=== PATIENT | female | born 1975 | race Caucasian/White ===

== ENCOUNTER 2019-03-16 21:43 | Inpatient (IN) | payer MEDICAID, OTHER ==
[~2019-03-16] VITALS: Ht 167.6 cm; Wt 59.1 kg
[2019-03-17] MEDS ORDERED: HALOPERIDOL LACTATE 5 MG/ML VIAL IM ONE
[2019-03-17] MEDS ORDERED: LORazepam 2 MG/ML VIAL IM ONE
[2019-03-17] MEDS ORDERED: DiphenhydrAMINE HCL 50 MG/ML VIAL IM ONE
[2019-03-17] MEDS ORDERED: ZOLPIDEM TARTRATE 10 MG TABLET PO PRN (00:15)
[2019-03-17 01:52] LABS: BASOPHILS % (AUTO) 0.7 % (0.0-2.0); HEMATOCRIT 33.6 % (36-46); HEMOGLOBIN 11.4 g/dL (12.0-16.0); LYMPHOCYTES # (AUTO) 2.5 K/uL (1.0-4.8); LYMPHOCYTES % (AUTO) 29.7 % (22.0-44.0); MEAN CORPUSCULAR HEMOGLOBIN 31.8 pg (26.0-34.0); MEAN CORPUSCULAR VOLUME 93 fL (80-100); MONOCYTES # (AUTO) 0.6 K/uL (0.1-1.0); MONOCYTES % (AUTO) 7.4 % (2.0-9.0); NEUTROPHILS % (AUTO) 60.2 % (40.0-70.0); PLATELET COUNT (AUTO) 177 K/uL (150-450); RED CELL DISTRIBUTION WIDTH 13.6 % (11.5-14.5)
[2019-03-17 02:14] LABS: ALANINE AMINOTRANSFERASE 19 U/L (12-78); ALKALINE PHOSPHATASE 48 U/L (46-116); ANION GAP 3 mmol/L (8-16); ASPARTATE AMINOTRANSFERASE 17 U/L (15-37); BILIRUBIN,TOTAL 0.3 mg/dL (0.1-1.0); CALCIUM, TOTAL 7.9 mg/dL (8.8-10.5); CARBON DIOXIDE 30 mmol/L (22-29); CHLORIDE 105 mmol/L (98-107); CREATININE 0.83 mg/dL (0.60-1.30); GLOMERULAR FILTR. RATE CALC > 60 mL/min (>60); GLUCOSE,RANDOM 87 mg/dL (70-110); HCG,QUANTITATIVE < 1 mIU/mL (0-6); POTASSIUM 3.3 mmol/L (3.5-5.1); SODIUM SERUM 138 mmol/L (136-145); TOTAL PROTEIN, SERUM 5.4 g/dL (6.4-8.2)
[2019-03-17 02:20] LABS: UREA NITROGEN, BLOOD 22 mg/dL (7-18)
[2019-03-17] MEDS ORDERED: POTASSIUM CHLORIDE 20 MEQ ER TABLET PO ONE (04:00)
[2019-03-17] MEDS ORDERED: INFLUENZA VIRUS VACCINE QVS 2019-20 (3YR+)/PF 60 MCG/0.5 ML SYRINGE IM ONE (04:45)
[2019-03-17] MEDS ORDERED: CloNIDine HCL 0.1 MG TABLET PO PRN (13:15)
[2019-03-17] MEDS ORDERED: ACETAMINOPHEN 325 MG TABLET PO PRN (13:15)
[2019-03-17] MEDS ORDERED: GuaiFENesin/D-METHORPHAN [SUGAR-FREE] 200-20MG/10 ML SYRUP UDCUP PO PRN (13:15)
[2019-03-17] MEDS ORDERED: DOCUSATE SODIUM 100 MG CAPSULE PO PRN (13:15)
[2019-03-17] MEDS ORDERED: PETROLATUM,WHITE 28 GM JELLY TP PRN (13:15)
[2019-03-17] MEDS ORDERED: ALBUTEROL SULFATE HFA 90 MCG/PUFF 8 GM INHALER IH PRN (13:15)
[2019-03-17] MEDS ORDERED: MAG HYDROX/AL HYDROX/SIMETH ES 30 ML SUSPENSION UDCUP PO PRN (13:15)
[2019-03-17] MEDS ORDERED: MAGNESIUM HYDROXIDE SUSPENSION 30 ML UDCUP PO PRN (13:15)
[2019-03-17] MEDS ORDERED: LOPERAMIDE HCL 2 MG CAPSULE PO PRN (13:15)
[2019-03-17] MEDS ORDERED: ONDANSETRON HCL 4 MG TABLET PO PRN (13:15)
[2019-03-17 16:00] VITALS: BP 99/71
[2019-03-17] MEDS: OLANZapine 10 MG RAPDIS TABLET PO SCH (17:00)
[2019-03-18] MEDS: LORazepam 2 MG TABLET PO PRN ×2 (04:29→17:33)
[2019-03-18] MEDS: OLANZapine 5 MG RAPDIS TABLET PO PRN (04:30)
[2019-03-18] MEDS: OLANZapine 10 MG RAPDIS TABLET PO SCH ×2 (09:00→16:29)
[2019-03-18 16:00] VITALS: BP 121/93
[2019-03-18] MEDS: NICOTINE 14 MG/24 HOUR PATCH TD PRN (18:06)
[2019-03-18] MEDS ORDERED: HALOPERIDOL LACTATE 5 MG/ML VIAL ONE (20:56)
[2019-03-18] MEDS ORDERED: LORazepam 2 MG/ML VIAL ONE (20:56)
[2019-03-18] MEDS ORDERED: DiphenhydrAMINE HCL 50 MG/ML VIAL ONE (20:56)
[2019-03-18] MEDS ORDERED: HALOPERIDOL LACTATE 5 MG/ML VIAL IM ONE (21:00)
[2019-03-18] MEDS ORDERED: LORazepam 2 MG/ML VIAL IM ONE (21:00)
[2019-03-18] MEDS ORDERED: DiphenhydrAMINE HCL 50 MG/ML VIAL IM ONE (21:00)
[2019-03-18 22:27] VITALS: BP 92/61
[2019-03-19] MEDS: LORazepam 2 MG TABLET PO PRN ×2 (07:08→12:16)
[2019-03-19] MEDS: NICOTINE 14 MG/24 HOUR PATCH TD PRN (08:03)
[2019-03-19] MEDS: OLANZapine 10 MG RAPDIS TABLET PO SCH ×2 (08:07→17:00)
[2019-03-19 08:57] LABS: CHOL/HDL RATIO 2.1 (3.9-5.7)
[2019-03-19] MEDS ORDERED: LORazepam 2 MG/ML VIAL IM ONE (09:00)
[2019-03-19] MEDS ORDERED: DiphenhydrAMINE HCL 50 MG/ML VIAL IM ONE (09:00)
[2019-03-19] MEDS ORDERED: HALOPERIDOL LACTATE 5 MG/ML VIAL IM ONE (09:00)
[2019-03-19 09:25] VITALS: BP 110/73
[2019-03-19 16:06] VITALS: BP 107/77
[2019-03-20] MEDS: LORazepam 2 MG TABLET PO PRN ×2 (04:16→16:27)
[2019-03-20] MEDS ORDERED: LORazepam 2 MG/ML VIAL IM ONE (05:00)
[2019-03-20] MEDS ORDERED: DiphenhydrAMINE HCL 50 MG/ML VIAL IM ONE (05:00)
[2019-03-20] MEDS: OLANZapine 10 MG RAPDIS TABLET PO SCH ×2 (11:02→16:05)
[2019-03-20] MEDS: NICOTINE 14 MG/24 HOUR PATCH TD PRN (11:05)
[2019-03-20] MEDS: IBUPROFEN 400 MG TABLET PO PRN (11:07)
[2019-03-20 16:38] VITALS: BP 91/60
[2019-03-21] MEDS: LORazepam 2 MG TABLET PO PRN ×3 (06:12→18:49)
[2019-03-21] MEDS: OLANZapine 5 MG RAPDIS TABLET PO PRN ×2 (06:12→07:53)
[2019-03-21] MEDS: NICOTINE 14 MG/24 HOUR PATCH TD PRN (06:40)
[2019-03-21] MEDS: OLANZapine 10 MG RAPDIS TABLET PO SCH ×2 (07:51→17:00)
[2019-03-21 08:23] VITALS: BP 103/68
[2019-03-22] MEDS: LORazepam 2 MG TABLET PO PRN ×2 (05:35→09:55)
[2019-03-22] MEDS: IBUPROFEN 400 MG TABLET PO PRN (07:43)
[2019-03-22] MEDS: OLANZapine 10 MG RAPDIS TABLET PO SCH ×3 (07:43→08:29)
[2019-03-22] MEDS: NICOTINE 14 MG/24 HOUR PATCH TD PRN (07:55)
[2019-03-22 09:40] VITALS: BP 104/76
[2019-03-22] MEDS ORDERED: OLAN10TA6 PO (09:48)
== END 2019-03-22 11:15 | disposition home or self-care (01) | DRG 750 ==
LOC: EMS 21:45 → 3EC 03-17 03:30 → UNDOADMIN 03-17 03:30
PROVIDERS: ADMIT Psychiatry & Neurology Child & Adolescent Psychiatry; ATTEND Psychiatry & Neurology Child & Adolescent Psychiatry
DX: F25.0 Schizoaffective disorder, bipolar type (principal); D64.9 Anemia, unspecified; E87.6 Hypokalemia; R10.13 Epigastric pain
CPT/HCPCS: G0480; J1200; J1630; J2060; J3230